=== PATIENT | female | born 1955 | race Hispanic/Latino ===

== ENCOUNTER 2020-10-16 14:59 | Emergency (ER) | payer MEDICARE ==
[~2020-10-16] VITALS: Ht 157.5 cm; Wt 49.9 kg
[~2020-10-16 14:59] MED LIST: ALBU90AE IH; ALBUHFA PUFF; AMLO-258 PO; ARIP10TA8 PO; CALC667T6 PO; DIPH1TAB24 PO; FLUO90CA4 PO; FOLI1TAB85 PO; GLIP10TA9 PO; HYDR100T27 PO; LOMO PO; NIFE60TA81 PO; SERT-440 PO
[2020-10-16 16:22] LABS: BASOPHILS % (AUTO) 0.9 % (0.0-5.0); EOSINOPHILS % (AUTO) 1.7 % (0.0-8.0); HEMATOCRIT 34.5 % (36-48); LYMPHOCYTES % (AUTO) 4.8 % (21.0-51.0); MEAN CORPUSCULAR HEMOGLOBIN 33.3 pg (27.0-33.0); MEAN CORPUSCULAR VOLUME 100.9 fL (79-99); MONOCYTES % (AUTO) 9.5 % (3.0-13.0); NEUTROPHILS % (AUTO) 82.8 % (40.0-77.0); PLATELET COUNT (AUTO) 127 K/uL (130-400); RED BLOOD CELL COUNT(AUTO) 3.42 MIL/uL (4.00-5.50); RED CELL DISTRIBUTION WIDTH 13.5 % (11.0-15.5); WHITE BLOOD COUNT (AUTO) 5.8 K/uL (4.8-10.8)
[2020-10-16 16:42] LABS: BILIRUBIN,TOTAL 0.3 mg/dL (0.2-1.0); CREATININE 4.1 mg/dL (0.5-1.5); POTASSIUM 5.2 mmol/L (3.5-5.1); TOTAL PROTEIN, SERUM 7.2 g/dL (6.0-8.3)
[2020-10-16 18:08] VITALS: BP 194/70
[2020-10-16] MEDS ORDERED: HYDRALAZINE 20MG/ML VIAL IV SCH (18:30)
[2020-10-16 19:19] VITALS: BP 150/61
== END 2020-10-16 19:49 | disposition home or self-care (01) ==
LOC: EDH 14:59
DX: R53.1 Weakness (principal); I12.0 Hypertensive chronic kidney disease with stage 5 chronic kidney disease or end stage renal disease; E10.22 Type 1 diabetes mellitus with diabetic chronic kidney disease; N18.6 End stage renal disease; Z79.84 Long term (current) use of oral hypoglycemic drugs; Z79.899 Other long term (current) drug therapy; Z99.2 Dependence on renal dialysis
CPT/HCPCS: 36415; 80053; 85025; 93005; 96374; J0360

== ENCOUNTER 2020-12-31 14:21 | Inpatient (IN) | payer MEDICARE ==
[~2020-12-31] VITALS: Ht 160 cm; Wt 47.6 kg
[2020-12-31] MEDS ORDERED: MAG/ALUM/SIMETH 30 ML UDCUP PO ONE (14:30)
[2020-12-31 15:13] LABS: BASOPHILS % (AUTO) 0.4 % (0.0-5.0); EOSINOPHILS % (AUTO) 2.3 % (0.0-8.0); HEMATOCRIT 31.2 % (36-48); LYMPHOCYTES % (AUTO) 2.2 % (21.0-51.0); MEAN CORPUSCULAR HEMOGLOBIN 32.4 pg (27.0-33.0); MEAN CORPUSCULAR HGB CONC 32.4 g/dL (32.0-36.0); MONOCYTES % (AUTO) 8.1 % (3.0-13.0); NEUTROPHILS % (AUTO) 86.3 % (40.0-77.0); PLATELET COUNT (AUTO) 140 K/uL (130-400); RED BLOOD CELL COUNT(AUTO) 3.12 MIL/uL (4.00-5.50); RED CELL DISTRIBUTION WIDTH 13.4 % (11.0-15.5); WHITE BLOOD COUNT (AUTO) 7.2 K/uL (4.8-10.8)
[2020-12-31] MEDS ORDERED: LACTULOSE 20 GM/30 ML UDCUP PO ONE (15:30)
[2020-12-31] MEDS ORDERED: CEFTRIAXONE 1G VIAL IVP ONE (15:30)
[2020-12-31] MEDS ORDERED: LIDOCAINE HCL 2% VISCOUS 15 ML UDCUP ONE (15:34)
[2020-12-31] MEDS ORDERED: DICYCLOMINE HCL 10 MG/5 ML ML PO ONE (15:35)
[2020-12-31] MEDS ORDERED: MAG/ALUM/SIMETH 30 ML UDCUP ONE (15:35)
[2020-12-31] MEDS ORDERED: CEFTRIAXONE 1G VIAL ONE (15:35)
[2020-12-31 15:37] LABS: POTASSIUM 3.3 mmol/L (3.5-5.1)
[2020-12-31 15:47] LABS: BILIRUBIN,TOTAL 0.4 mg/dL (0.2-1.0); TOTAL PROTEIN, SERUM 7.1 g/dL (6.0-8.3)
[2020-12-31] MEDS ORDERED: ONDANSETRON 4MG INJ IVP ONE (16:00)
[2020-12-31] MEDS ORDERED: VANCOMYCIN KIT 1 GM/250 ML IV.KIT IV ONE (16:30)
[2020-12-31] MEDS ORDERED: ACETAMINOPHEN 325 MG TAB PO PRN ×2 (17:00)
[2020-12-31] MEDS ORDERED: ONDANSETRON 4MG INJ IV PRN (17:00)
[2020-12-31] MEDS ORDERED: GUAIFENESIN-DM 200/20 MG 10 ML PO PRN (17:00)
[2020-12-31] MEDS ORDERED: LACTULOSE 20 GM/30 ML UDCUP PO PRN (17:00)
[2020-12-31] MEDS ORDERED: NITROGLYCERIN 0.4 MG SL TAB SL PRN (17:00)
[2020-12-31] MEDS ORDERED: DiphenhydrAMINE HCL 50 MG/ML VIAL IV PRN (17:00)
[2020-12-31 17:09] LABS: INR 1.05 (0.85-1.15); PROTHROMBIN TIME 11.4 SEC (9.6-11.6)
[2020-12-31 17:11] LABS: PARTIAL THROMBOPLASTIN TIME 26.3 SEC (26.3-35.5)
[2020-12-31] MEDS ORDERED: VANCOMYCIN 1G/250ML KIT 250 ML IV ONE (17:43)
[2020-12-31] MEDS ORDERED: 0.9%NACL 50ML 50 ML IV ONE (20:38)
[2020-12-31] MEDS: 0.9% NACL 250ML IVPB SCH (20:50)
[2020-12-31] MEDS: DOXYCYCLINE 100MG+NS 250ML IV SCH (20:50)
[2020-12-31] MEDS: CEFEPIME HCL 1 GM VIAL IV SCH (20:50)
[2020-12-31] MEDS: NYSTATIN-TRIAMCINOLONE CREAM 15 GM TP SCH (20:51)
[2020-12-31] MEDS: INSULIN HUMULIN R 100 UNIT/ML 3ML SQ SCH (21:00)
[2020-12-31 23:20] VITALS: BP 151/64
[2021-01-01 03:25] LABS: HEMATOCRIT 30.4 % (36-48); MEAN CORPUSCULAR HEMOGLOBIN 32.6 pg (27.0-33.0); MEAN CORPUSCULAR HGB CONC 33.2 g/dL (32.0-36.0); MEAN CORPUSCULAR VOLUME 98.1 fL (79-99); RED BLOOD CELL COUNT(AUTO) 3.1 MIL/uL (4.00-5.50); RED CELL DISTRIBUTION WIDTH 13.3 % (11.0-15.5); WHITE BLOOD COUNT (AUTO) 6.1 K/uL (4.8-10.8)
[2021-01-01 04:00] VITALS: BP 164/66
[2021-01-01 04:08] LABS: ALBUMIN 2.9 g/dL (3.5-5.0); BILIRUBIN,TOTAL 0.4 mg/dL (0.2-1.0); CREATININE 2.5 mg/dL (0.5-1.5); POTASSIUM 3.6 mmol/L (3.5-5.1)
[2021-01-01] MEDS: 0.9% NACL 250ML IVPB SCH ×2 (05:00→18:35)
[2021-01-01] MEDS ORDERED: HEPARIN 5,000 UNIT VIAL SQ PRN (05:00)
[2021-01-01] MEDS ORDERED: HEPARIN 25,000 UNITS/250ML D5W 250 ML IV SCH (05:00)
[2021-01-01] MEDS: DOXYCYCLINE 100MG+NS 250ML IV SCH ×2 (05:23→18:34)
[2021-01-01] MEDS ORDERED: ASCO500T10 PO (06:29)
[2021-01-01] MEDS ORDERED: DICY10 PO (06:29)
[2021-01-01] MEDS ORDERED: NIFE-39 PO (06:29)
[2021-01-01] MEDS ORDERED: BALS60OI TP (06:29)
[2021-01-01] MEDS ORDERED: BISA10SU11 RC (06:29)
[2021-01-01] MEDS ORDERED: SIME80TA12 PO (06:29)
[2021-01-01] MEDS ORDERED: ESCI-8 PO (06:29)
[2021-01-01] MEDS ORDERED: LABE100T5 PO (06:29)
[2021-01-01] MEDS ORDERED: MECL-160 PO (06:29)
[2021-01-01] MEDS ORDERED: LOSA100T58 PO (06:29)
[2021-01-01] MEDS ORDERED: ASPI-1197 PO (06:29)
[2021-01-01] MEDS ORDERED: SENN1TAB53 PO (06:29)
[2021-01-01] MEDS ORDERED: LATA7.5D OP (06:29)
[2021-01-01] MEDS: INSULIN HUMULIN R 100 UNIT/ML 3ML SQ SCH ×4 (06:45→21:00)
[2021-01-01] MEDS: HYDRALAZINE 20MG/ML VIAL IV PRN (06:51)
[2021-01-01 07:48] VITALS: BP 120/54
[2021-01-01] MEDS: ENOXAPARIN SODIUM 30 MG/0.3 ML SQ SCH (09:00)
[2021-01-01] MEDS ORDERED: MAGNESIUM CITRATE 296 ML SOLUTION PO SCH (09:30)
[2021-01-01] MEDS ORDERED: MECLIZINE HCL 25 MG TABLET PO PRN (09:30)
[2021-01-01] MEDS: NYSTATIN-TRIAMCINOLONE CREAM 15 GM TP SCH ×2 (10:10→20:05)
[2021-01-01] MEDS: DOCUSATE SODIUM 100 MG CAP PO SCH ×2 (11:30→20:04)
[2021-01-01 11:40] VITALS: BP 142/65
[2021-01-01 16:00] VITALS: BP 143/63
[2021-01-01] MEDS: CEFEPIME HCL 1 GM VIAL IV SCH (18:34)
[2021-01-01] MEDS: LABETALOL HCL 100 MG TABLET PO SCH (20:04)
[2021-01-01] MEDS: LATANOPROST 2.5 ML DROPS OP SCH (20:04)
[2021-01-01 20:50] VITALS: BP 144/54
[2021-01-01 23:33] VITALS: BP 160/56
[2021-01-02] VITALS (20 sets, daily range): BP systolic 112–166; BP diastolic 53–74
[2021-01-02] MEDS: DOCUSATE SODIUM 100 MG CAP PO SCH ×3 (02:32→21:29)
[2021-01-02] MEDS: DOXYCYCLINE 100MG+NS 250ML IV SCH ×2 (03:16→17:00)
[2021-01-02] MEDS: HYDRALAZINE 20MG/ML VIAL IV PRN (03:16)
[2021-01-02] MEDS: 0.9% NACL 250ML IVPB SCH ×2 (03:16→17:00)
[2021-01-02 04:01] LABS: HEMATOCRIT 30.9 % (36-48); MEAN CORPUSCULAR HEMOGLOBIN 32.6 pg (27.0-33.0); MEAN CORPUSCULAR HGB CONC 32.7 g/dL (32.0-36.0); MEAN CORPUSCULAR VOLUME 99.7 fL (79-99); RED BLOOD CELL COUNT(AUTO) 3.1 MIL/uL (4.00-5.50); RED CELL DISTRIBUTION WIDTH 13.5 % (11.0-15.5); WHITE BLOOD COUNT (AUTO) 5.1 K/uL (4.8-10.8)
[2021-01-02 04:15] LABS: CREATININE 3.4 mg/dL (0.5-1.5); PHOSPHORUS 2.5 mg/dL (2.5-4.9); POTASSIUM 3.9 mmol/L (3.5-5.1)
[2021-01-02] MEDS: INSULIN HUMULIN R 100 UNIT/ML 3ML SQ SCH ×4 (04:21→21:00)
[2021-01-02] MEDS ORDERED: POLYETHYLENE GLYCOL 3350 17 GM POWD.PACK PO SCH (09:00)
[2021-01-02] MEDS: LABETALOL HCL 100 MG TABLET PO SCH ×2 (09:00→21:29)
[2021-01-02] MEDS: ENOXAPARIN SODIUM 30 MG/0.3 ML SQ SCH (09:00)
[2021-01-02] MEDS: NYSTATIN-TRIAMCINOLONE CREAM 15 GM TP SCH ×2 (09:00→21:00)
[2021-01-02] MEDS ORDERED: NIFEDIPINE ER 30 MG TAB PO SCH (09:00)
[2021-01-02] MEDS ORDERED: ASCORBIC ACID 500 MG TAB PO SCH (09:00)
[2021-01-02] MEDS ORDERED: LOSARTAN 100 MG TABLET PO SCH (09:00)
[2021-01-02] MEDS ORDERED: SENNOSIDES 8.6 MG TABLET PO SCH (09:00)
[2021-01-02] MEDS ORDERED: ASPIRIN 81MG CHEW TAB PO SCH (09:00)
[2021-01-02] MEDS ORDERED: 0.9%NACL 1000ML 1,000 ML IV PRN (14:00)
[2021-01-02 15:55] LABS: ABG HCO3 23.8 mmol/L (21.0-28.0); ABG PCO2 40 mmHg (32-45)
[2021-01-02 15:56] LABS: ABG OXYGEN SATURATION 94.6 % (95.0-99.0)
[2021-01-02] MEDS: LATANOPROST 2.5 ML DROPS OP SCH ×2 (16:20→21:31)
[2021-01-02] MEDS: CEFEPIME HCL 1 GM VIAL IV SCH (18:00)
[2021-01-05 01:08] LABS: HEPATITIS Bs ANTIGEN SCREEN P Negative (Negative)
== END 2021-01-02 22:34 | DRG 388 ==
LOC: EDH 14:21 → EDHIP 16:43 → 4CH 22:40
PROVIDERS: ADMIT Internal Medicine; ATTEND Internal Medicine
PROC: 5A1D70Z Performance of Urinary Filtration, Intermittent, Less than 6 Hours Per Day (ICD-10-PCS; principal; 2021-01-02)
DX: K56.41 Fecal impaction (principal); J18.9 Pneumonia, unspecified organism; N18.6 End stage renal disease; R53.2 Functional quadriplegia; I50.33 Acute on chronic diastolic (congestive) heart failure; N17.9 Acute kidney failure, unspecified; E46 Unspecified protein-calorie malnutrition; I13.2 Hypertensive heart and chronic kidney disease with heart failure and with stage 5 chronic kidney disease, or end stage renal disease; Z68.1 Body mass index [BMI] 19.9 or less, adult; J98.11 Atelectasis; J44.0 Chronic obstructive pulmonary disease with (acute) lower respiratory infection; E87.1 Hypo-osmolality and hyponatremia; E87.70 Fluid overload, unspecified; E11.22 Type 2 diabetes mellitus with diabetic chronic kidney disease; Z20.822 Contact with and (suspected) exposure to COVID-19; K21.9 Gastro-esophageal reflux disease without esophagitis; F32.A Depression, unspecified; Z66 Do not resuscitate; E78.5 Hyperlipidemia, unspecified; E11.51 Type 2 diabetes mellitus with diabetic peripheral angiopathy without gangrene; D64.9 Anemia, unspecified; I45.9 Conduction disorder, unspecified; K57.90 Diverticulosis of intestine, part unspecified, without perforation or abscess without bleeding; E83.52 Hypercalcemia; N28.1 Cyst of kidney, acquired; Y95 Nosocomial condition; Z99.2 Dependence on renal dialysis; I25.2 Old myocardial infarction; Z89.511 Acquired absence of right leg below knee; Z79.82 Long term (current) use of aspirin; Z95.0 Presence of cardiac pacemaker; Z91.19 Patient's noncompliance with other medical treatment and regimen; Z83.3 Family history of diabetes mellitus; Z82.49 Family history of ischemic heart disease and other diseases of the circulatory system; Z82.3 Family history of stroke; Z82.0 Family history of epilepsy and other diseases of the nervous system; Z82.5 Family history of asthma and other chronic lower respiratory diseases
CPT/HCPCS: 36415; 71045; 74176; 80048; 80053; 82150; 82435; 82550; 82803; 82947; 82948; 83605; 83874; 83880; 84100; 84132; 84295; 84484; 85018; 85025; 85027; 85610; 85730; 86704; 86706; 87340; 87635; 87804; 90935; 93005; 93306; 93356; C9803; G0378; J0360; J0692; J0696; J1644; J2405; J3370; J3490; J7050